=== PATIENT | male | born 1950 | race Caucasian/White ===

== ENCOUNTER 2017-02-19 17:43 | Observation (INO) | payer OTHER, MEDICARE ==
[~2017-02-19] VITALS: Ht 170.2 cm; Wt 85.3 kg
[~2017-02-19 17:43] MED LIST: ATENOLOL50 MG PO; CLINDAMYCIN HC150 MG PO; HYDROCHLOROTH12.5 MG PO; TENORMIN25 MG PO
[2017-02-19] MEDS ORDERED: LEVOTHYROXINE100 MCG PO (17:57)
--- NOTE | 2017-02-19 19:07 | NUR ---
I WAS CALLED IN FOR FULL TRAUMA FOR THIS PT. (MULT. DOG BITES). THANKFULLY TI WAS NOT SERIOUS COULD HAVE BEEN. I WAITED TILL NURSES AND DR RODRÍGUEZ DID WHAT THEY DO, THEN WENT IN AND TALKED A MINUTE WITH PT AND HIS SISTER, THEN PRAYED WITH THEM. TALKED A MINUTE MORE THEN TOLD THEM SINCE IT WAS NOT SERIOUS COULD BE AND IT LOOKED LIKE THINGS WOULD BE TAKEN CARE OF, I WOULD GET OUT OF EVERYONES WAY. PT IN GOOD ATTITUDE AND HIS SISTER ALSO.
--- NOTE | 2017-02-19 21:35 | NUR ---
02/19/172134 Liberty Mcginnis 2126-PATIENT ARRIVED TO PACU ON 10L MASK O2 SAT 99% PATIENT NONAROUSABLE ORAL AIRWAY IN PLACE. DRESSING TO RIGHT SIDE OF FACE, RIGHT AND LEFT HAND AND RIGHT LEG. CDI. SR.
--- NOTE | 2017-02-19 21:45 | EKG ---
[facility] [address] [facility] [place] [address] Signed Normal sinus rhythm Normal ECG When compared with ECG of 16-NOV-2015 13:00, Nonspecific T wave abnormality now evident in Lateral leads Confirmed by MARK GONG MD ([id number]) on 02/19/2017 9:45:35 PM Electronically Signed By: MARK GONG MD 02/19/17 2145 PATIENT NAME: DONJOSE ALBERTO DARSHAN Electrocardiogram DATE OF : 48 PHYSICIAN: MARK GONG MD REPORT #: [id number] REPORT IS CONFIDENTIAL AND NOT TO BE RELEASED WITHOUT AUTHORIZATION
--- NOTE | 2017-02-19 22:30 | NUR ---
PT ARRIVED TO FLOOR VIA STRETCHER. PT DROWSY BUT WAKES EASILY. PT WAKES CONFUSED AND FORGETS PLACE AND EVENT, BUT DOES RE-ORIENT EASILY. COOPERATIVE. DRESSING IN PLACE ON RIGHT FACE AND NECK, RIGHT ARM, RIGHT LOWER LEG AND LEFT HAND. RED SHADOWING ON RIGHT FACE DRESSING. LEFT FINGERS HAVE DARK RED BLOOD COVERING THEM. PT IS IN NO APPARENT DISTRESS AT THIS TIME, FALLS ASLEEP ON AND OFF WHILE STAFF IN THE ROOM. RR WNL AND UNLABORED, NO DIFFICULTY BREATHING AT THIS TIME. PT DRANK WATER, TOLERATED WELL. BED ALARM ON FOR SAFETY.
--- NOTE | 2017-02-20 01:15 | NUR ---
PT APPEARS TO BE SLEEPING. RR WNL AND UNLBORED.
--- NOTE | 2017-02-20 01:53 | NUR ---
PT WOKE WHEN VITALS TAKEN. SEEMS MORE ORIENTED AT THIS TIME, BUT STILL A LITTLE CONFUSED. HE RECALLED WHERE HE IS, BUT COULD NOT REMEMBER WHY, RN RE-ORIENTED PT. PT RATES PAIN AT 2/10, REPORTS PAIN IS FELT WORSE IN HIS RIGHT LEG, HE REFUSED PAIN MEDIATION AT THIS TIME, STATED "ITS OKAY RIGHT NOW." SHADOWING ON DRESSING TO RIGHT SIDE OF FACE REMAINS THE SAME. NO SWELLING IN NECK AND NO DIFFICULTLY BREATHING. ORIENTED PT TO CALL LIGHT. BED ALARM FOR SAFETY. ICE PACKS IN PLACE. PT HAS NO FURTHER NEEDS AT THIS TIME.
--- NOTE | 2017-02-20 05:40 | NUR ---
SCD'S WERE APPLIED AT 2245 TO THE LEFT LEG ONLY.
--- NOTE | 2017-02-20 05:42 | NUR ---
RE-POSITIONED PT IN BED. PT DENIES PAIN AT THIS TIME, RATES PAIN AT 0/10. STATES "I DONT HAVE ANY," IN REGARDS TO PAIN. ASSISTED PT WITH FINDING CHANNEL ON TV. GAVE APPLE JUICE, PT TOLERATING WELL. NO FURTHER NEEDS AT THIS TIME. CALL IGHT IN REACH.
--- NOTE | 2017-02-20 05:56 | NUR ---
PT SLEPT MAJORITY OF SHIFT. DRESSING TO RIGHT SIDE OF FACE HAS RED SHADOWING AND IT HAS BEEN UNCHANGED SINCE PT CAME TO THE FLOOR LAST NIGHT. PT HAS MULTIPLE PUNCTURE AND LACERATIONS ON FACE, NECK, HANDS, ARMS, AND LEGS. ALL WOUNDS ARE COVERED WITH GAUZE DRESSINGS. GOOD PEDAL PULSES. NO SIGNS OF DIFFICULTY BREATHING. PT COOPERATIVE. FORGETFUL DUE TO HX OF TBI. RE-ORIENTS EASILY. PLEASENT DEMEANOR.
--- NOTE | 2017-02-20 06:14 | OR ---
[facility] [address] [place], [place] [address] Signed DATE OF OPERATION: 02/19/2017 SURGEON: Erica Rodríguez MD PREOPERATIVE DIAGNOSIS: Dog bite right posterior mandible/right face, left hand, right wrist and right leg (mid to distal tibia). POSTOPERATIVE DIAGNOSIS: Dog bite right posterior mandible/right face, left hand, right wrist and right leg (mid to distal tibia). PROCEDURE: 1. Wound exploration, irrigation and sharp debridement. 2. Closure right mandibular/face wounds and right leg wounds. ESTIMATED BLOOD LOSS: None. INDICATIONS: Jose Alberto is a 66-year-old gentleman, who suffered a fairly significant traumatic brain injury back in the 1960s. Earlier today, for reasons that are not clear, he wanted to check on what he said are his rentals and he cut through a neighbor's backyard. Unfortunately, the neighbor's pit bull was present. Jose Alberto was bit over the right zygomatic arch and the posterior angle of the right mandible and then on his left hand, his right wrist and his mid to distal right leg. He was brought to our local emergency room for evaluation. He remained hemodynamically stable. His tetanus was updated and he was given a dose of Zosyn. I was asked to see him as a general surgeon on-call. It so happens that his sister is one of our OR nurses. I met with Alisha in the ER and we looked at his wounds. I explained to her, we would need to have him in the OR under general anesthesia, so we could thoroughly wash and scrub his wounds and assessed them more carefully and then decide on the best course of treatment. We gently can close animal bites to the head, face and neck but, we were less inclined to do so particularly on the hands, but also the legs depending on the wound, particularly puncture like wound. I explained to Jose Alberto there is risk including but not limited to bleeding, infection, scarring, change in contour of the skin and possible damage to nerves particularly in his left middle finger. He and his sister had expressed understanding and wished to proceed. PROCEDURE NOTE: Electronically Signed By: ERICA RODRÍGUEZ MD 02/20/17 0614 PATIENT NAME: JOSE ALBERTO OCHOA OPERATIVE REPORT DATE OF : 48 PHYSICIAN: ERICA RODRÍGUEZ MD REPORT #: [id number] REPORT IS CONFIDENTIAL AND NOT TO BE RELEASED WITHOUT AUTHORIZATION [facility] [address] [place] [id number] Signed Jose Alberto was taken down to our operating room and placed in the supine position under general endotracheal tube anesthesia. After this, we used our chlorhexidine scrub brushes and some saline and we thoroughly scrubbed down his right leg. We could see that the tendons are intact, a little bit of the muscle was torn, but the bone was not exposed and he had 2 bites in the back of that right leg, each about an inch or so in length, one was flat just a little bit. After this, we cleaned off his right wrist with some relatively small bites on his wrist and it does not look like any of the wrist joints were involved. We looked at his right hand and that was worse, particularly his middle finger. It was pretty deep near the tip as well as near the base of that finger. It was hard to see in the wounds even after we cleaned and debrided them, I think the tendons were intact based on opening and closing his hand and his fingers. We did not do a formal neurologic assessment obviously before or during the procedure. After that we washed off his right face and he had a fairly large slashing laceration to the posterior aspect of his mandible involved just a little bit of the muscle but otherwise was not. It did not appear any deeper than that and of course 2 of the teeth went in near the zygomatic arch. The more inferior puncture wound actually connects to the wound on the back of the mandible. Once that was completely scrubbed and cleaned, I actually scrubbed out of surgery and took a minute to call Dr. Mark Ahumada our orthopedic surgeon ammonia worker. I reviewed the hand wound and the leg wound with him in detail. We decided to address his left hand with some bacitracin and some gauze, so that he can be formally evaluated in the office not tomorrow, but the next day. On the right pretibial area, we decided to go ahead and close that after some sharp debridement and evacuation of all that hematoma. We used 2-0 nylon vertical mattress sutures to just gently reapproximate the edge of that wound. Since it was mostly a flap, we wanted to cover that muscle to keep it from desiccating. Then on the back of the leg, the more superior wound was triangular shaped and a little bit of a flap, and I just took 1 stitch to bring the middle of that wound together and the laceration just below that we left that open and it should heal fine, that was then wrapped with some dry Kerlix gauze and a 6-inch Alexys wrap. Similarly, the right wrist had just a couple of puncture wounds from the dog's teeth, so we left those open and we just wrapped that gently with Kerlix gauze and an Alexys wrap and after this, we took the entire field down. I went and scrubbed out and completely re-gowned and re-gloved and then we reprepped and draped over his right face and explored that wound once again. There was just a little bit of sharp debridement I had to do along the skin edges and underneath it. We washed it out thoroughly with irrigation and some dry gauze to help kind of abrade the area. After this, we reapproximated the 2 bite wounds over the zygomatic arch just loosely with several interrupted 5-0 subcuticular Monocryl sutures just to gently bring those skin edges together and after that, I brought the laceration over his mandible together with interrupted 3-0 subcuticular Monocryl sutures. After this, dry gauze and tape was applied. We then awakened Jose Alberto from his anesthesia. He was extubated in the OR and taken to recovery room in stable condition. Electronically Signed By: ERICA RODRÍGUEZ MD 02/20/17 0614 PATIENT NAME: JOSE ALBERTO OCHOA OPERATIVE REPORT DATE OF : 48 PHYSICIAN: ERICA RODRÍGUEZ MD REPORT #: [id number] REPORT IS CONFIDENTIAL AND NOT TO BE RELEASED WITHOUT AUTHORIZATION [address] [address] Signed MD DEWAYNE Allan/FILOMENAL /[id number] cc: MD Erica Weldon MD Bradley Adams, MD Electronically Signed By: ERICA RODRÍGUEZ MD 02/20/17 0614 PATIENT NAME: JOSE ALBERTO OCHOA OPERATIVE REPORT DATE OF : 48 PHYSICIAN: ERICA RODRÍGUEZ MD REPORT #: [id number] REPORT IS CONFIDENTIAL AND NOT TO BE RELEASED WITHOUT AUTHORIZATION
--- NOTE | 2017-02-20 06:50 | NUR ---
dc'd elana. pt tolerated well. continues to refuse pain medications. dr ovalle rounded on pt this morning.
--- NOTE | 2017-02-20 07:25 | NUR ---
pt awake laying in bed. pts diet was advanced- breakfast tray ordered.
--- NOTE | 2017-02-20 07:30 | NUR ---
REPORT RECEIVED FROM HUMA BENJAMIN. PT AWAKE AND TALKATIVE. HX OF SHORT TERM MEMORY LOSS, COULD NOT TELL US WHAT HAPPENED TO HIM BUT KNOWS HE IS IN THE HOSPITAL. DENIES PAIN, A LITTLE BIT OF DISCOMFORT. CASSIDY WILL ORDER BREAKFAST.
--- NOTE | 2017-02-20 08:04 | NUR ---
PT EATING BREAKFAST. ADVISED TO SLOW DOWN A BIT HE WAS TAKING HUGE BITES AND HAD SURGERY ON FACE AND NECK. DENIES PAIN. STATES HIS SISTER WILL COME TO SEE HIM TODAY SHE IS AN RN HERE. DOES NOT FEEL URGE TO URINATE YET.
--- NOTE | 2017-02-20 08:37 | CONS ---
[facility] [address] [place], [place] [address] Signed DATE OF CONSULTATION: 02/19/2017 CHIEF COMPLAINT: Dog bite. HISTORY OF PRESENT ILLNESS: Jose Alberto is a 66-year-old gentleman with a long history of traumatic brain injury. He states he was going out today to check on some of his rentals. When he went neighbor's yard, the pit-bull apparently jumped him, he ended up in the kitchen, and the squad was called. He had quite an injury to the posterior aspect of his right mandible, also over the right pretibial area, and then some bites to his left hand. He was brought to our local emergency room for evaluation. He has done well here in the emergency room without any bleeding or hemodynamic instability. In the meantime, he has been given Zosyn and updated on his tetanus shot. I have been asked to see him as a general surgeon on-call. PAST MEDICAL HISTORY: Hypertension, osteoarthritis, angina, apparently coma in the 1960s from a traumatic brain injury, and also history of acute kidney injury. PAST SURGICAL HISTORY: He has a rebuilt mandible and clavicle, and 3/4 right nephrectomy. SOCIAL HISTORY: He does not smoke or drink. Apparently likes little marijuana. Dr. Roa is his primary care provider. Theresa Fitzgerald is his sister at [phone]. He prefers the [facility]. FAMILY HISTORY: Not reviewed today. REVIEW OF SYSTEMS: He had 10 systems reviewed and really nothing new to add. ALLERGIES: None. MEDICATIONS: Atenolol 25 mg p.o. at bedtime and levothyroxine 100 mcg p.o. daily. PHYSICAL EXAMINATION: VITAL SIGNS: His blood pressure is 120/72, heart rate is 67, respiratory rate is 16, temperature is 97.0. He is 98% on room air. He is 5 feet 7 inches, 72 kg. Electronically Signed By: ERICA RODRÍGUEZ MD 02/20/17 0614 Electronically Signed By: ERICA RODRÍGUEZ MD 02/20/17 1113 PATIENT NAME: JOSE ALBERTO OCHOA CONSULTATION DATE OF : 48 PHYSICIAN: ERICA RODRÍGUEZ MD REPORT #: [id number] REPORT IS CONFIDENTIAL AND NOT TO BE RELEASED WITHOUT AUTHORIZATION [facility] [address] [place], [place] [address] Signed GENERAL: He is alert, awake, and interactive. It is clear he has had a traumatic brain injury, although he is cooperative. LUNGS: Generally clear to auscultation bilaterally. HEART: Regular rate and rhythm. ABDOMEN: Benign. SKIN: I can see the gaping wound through his chaves on the posterior aspect of his right mandible. He has some bite huffman on his left hand and it is partially wrapped, and then he has an open 5 cm wound on his right pretibial area that is filled with hematoma. His sister, Theresa, is in the room as well. LABORATORY DATA: His white blood cell count is 7.5, hemoglobin 13, neutrophils 49. EKG is unremarkable. He had a chest x-ray done, it is pending. ASSESSMENT AND PLAN: Jose Alberto is a 66-year-old gentleman who has several serous dog bites as described above, certainly in the right posterior mandible area and then left hand and his right pretibial area. We are going to take him down to OR and we are going to put him asleep, so we can clean these areas, evaluate him thoroughly, and see if we can help close those areas here. We will leave the wounds on the hand open, we may partially close the leg, we should be able to close the injury on his neck. Of course, he is at high risk for infection including Pasteurella. Consequently, he has been given Zosyn. I have reviewed this with Jose Alberto and his sister. They have expressed understanding and agreed to the above plan. Erica Rodríguez MD [facility]/FILOMENAL /[id number] cc: Erica Rodríguez MD Electronically Signed By: ERICA RODRÍGUEZ MD 02/20/17 0614 Electronically Signed By: ERICA RODRÍGUEZ MD 02/20/17 1113 PATIENT NAME: JOSE ALBERTO OCHOA CONSULTATION DATE OF : 48 PHYSICIAN: ERICA RODRÍGUEZ MD REPORT #: [id number] REPORT IS CONFIDENTIAL AND NOT TO BE RELEASED WITHOUT AUTHORIZATION [facility] [address] [place] [address] [place], [place] [address] Signed W López Roa MD Electronically Signed By: ERICA RODRÍGUEZ MD 02/20/17 0614 Electronically Signed By: ERICA RODRÍGUEZ MD 02/20/17 1113 PATIENT NAME: DONJOSE ALBERTO DARSHAN CONSULTATION DATE OF : 48 PHYSICIAN: ERICA RODRÍGUEZ MD REPORT #: [id number] REPORT IS CONFIDENTIAL AND NOT TO BE RELEASED WITHOUT AUTHORIZATION
--- NOTE | 2017-02-20 10:12 | NUR ---
PT SITTING UP IN BED WATCHING TV. DENIES CONCERNS. INTERIM CONTROLLER DOING VITALS.
--- NOTE | 2017-02-20 10:16 | NUR ---
pts vitals taken at this time. assisted Brittney-RN in getting pt up to the chair. Bedbath given and AM care done.
--- NOTE | 2017-02-20 10:40 | NUR ---
ASSISTED FINAL INSPECTOR AND TESTER WITH TRANSFERING PT TO CHAIR. AMBULATED WITH FWW AND ASSIST IN TO RESTROOM. URINATED WO DIFFICULTY. FINAL INSPECTOR AND TESTER GAVE BED BATH. REORIENTED PT REGARDING WOUNDS AND FACT HE CAN NOT GET OUT OF BED OR CHAIR WITHOUT CALLING. CALL LIGHT IN REACH AND CURTAIN OPEN. TRIED TO CLEAN BLOOD FROM EXPOSED SKIN. PT DENIES PAIN.
[2017-02-20] MEDS ORDERED: TYLENOL325 MG PO (11:40)
[2017-02-20] MEDS ORDERED: NORCO 5-325 TA1 EACH PO (11:40)
[2017-02-20] MEDS ORDERED: AUGMENTIN 875-1 EACH PO (11:41)
--- NOTE | 2017-02-20 12:26 | NUR ---
DISCHARGE INSTRUCTIONS GIVEN TO SISTER MONA PT FORGETS QUICKLY. INSTRUCTIONS FOR MEDICATIONS AND DRESSINGS AND FOLLOWUP APPT. ADDRESSED. PHARM. WANDER IN TO EDUCATE ON MEDICATIONS. SISTER IS RN IN THIS OR. HAS VERY FEW QUESTIONS. SISTER WENT HOME TO GET PT CLOTHING. PT REMINDED TO STAY IN CHAIR AND CALL IF HE NEEDS SOMETHING.
--- NOTE | 2017-02-20 12:42 | NUR ---
pt is sitting up in the chair; waiting to be discharged. IV taken out by Mary.
--- NOTE | 2017-02-20 13:27 | NUR ---
PT APPEARS TO BE SLEEPING IN CHAIR WITH HAND PROPPED ON PILLOW. AWAITING THE RETURN OF HIS SISTER TO TAKE HIM HOME.
--- NOTE | 2017-02-23 16:42 | DS ---
[facility] [address] [place], [place] [address] Signed ADMISSION DATE: 02/19/2017 DISCHARGE DATE: 02/21/2017 FINAL DIAGNOSES: 1. Multiple dog bites including right face/right mandible, right wrist, left hand, right leg. 2. Remote history of traumatic brain injury. 3. History of acute renal failure. PROCEDURES: 1. Wound exploration with sharp debridement and closure of the right face wounds and right leg wounds. 2. Multiple x-rays. HISTORY OF PRESENT ILLNESS: Jose Alberto is a 66-year-old gentleman, who in the 1960s had a traumatic brain injury. He had reconstruction of his mandible as well. Unfortunately, he decided to check on some rentals and he decided to go through his neighbor's backyard. Apparently, there is a fence. The neighbor's pit bull proceeded to bite him in multiple locations as listed above. Apparently, the neighbor girl came and was able to get the dog off Jose Alberto and EMS was called. He was then brought to our local emergency room. HOSPITAL COURSE: Jose Alberto was seen in the emergency room by Dr. Kay and myself. He was given a dose of Zosyn IV as well as update on his tetanus shot. I took Jose Alberto to the operating room last night under general anesthesia and we used our chlorhexidine scrub brushes to aggressively clean all his wounds. The puncture wounds on his right wrist we left open and we simply wrapped that with some Kerlix gauze. The left hand was somewhat extensive, and therefore, I had called our orthopedic surgeon over the telephone. We decided to leave those wounds open with bacitracin and then wrap that hand extensively with gauze and Alexys wrap. On the leg, he had a flap injury anteriorly on the right tibia with [id number] damage to the muscle underneath. The tendons looked intact. We went ahead and cleaned that up and then just brought the skin flap back over it with several interrupted vertical nylon sutures. On the back of that calf overlying the Achilles tendon, more superior incision was also triangular and flap shaped and I brought that back with one simple nylon suture. The more inferior incision over that Achilles was left open and then dressed with Kerlix gauze and an Alexys wrap. We then moved to his face and we cleaned that extensively both inside and out. The 2 bite wounds over his right cheek were closed with interrupted 5-0 subcuticular Monocryl sutures. They were loosely approximated in that way. He has a large laceration over the posterior aspect of his right mandible and that was also a flap-type avulsion, that we cleaned extensively and Electronically Signed By: ERICA RODRÍGUEZ MD 02/23/17 1642 PATIENT NAME: JOSE ALBERTO OCHOA DISCHARGE SUMMARY DATE OF : 48 PHYSICIAN: ERICA RODRÍGUEZ MD REPORT #: [id number] REPORT IS CONFIDENTIAL AND NOT TO BE RELEASED WITHOUT AUTHORIZATION [facility] [address] [place] [address] Signed then we just brought the dermis back together loosely with interrupted 3-0 subcuticular Monocryl sutures. Just dry gauze and tape was applied over that. It was already late at night, so we kept him overnight. This morning, he is doing well. We went ahead and took some x-rays of his both hands and wrists. There were no fractures or malalignments, only soft tissue damage. Dr. Ahumada had come in to see him here in the hospital and talked to Jose Alberto and his sister. Dr. Ahumada wants to see him in 2 days at the office for formal evaluation of those wounds. In the meantime, he wants him on Augmentin 750 mg p.o. b.i.d. Amazingly, Jose Alberto does not complain of pain and has not asked for pain medication. He has had his breakfast and otherwise is doing well. He is allowed to be weightbearing on his leg given the fact that the fibula has just a little bit of a chip or an avulsion type fracture from his dog bite. Consequently, we are going to make arrangements to go ahead and let Jose Alberto go home later today. DISCHARGE PLANS AND MEDICATIONS: Jose Alberto will be discharged to home with a prescription for Hayden 5/325 mg 1-2 tablets p.o. every 4-6 hours p.r.n. pain. We will dispense just 25 tablets with no refills. He is welcome to use some Tylenol as needed for pain. He can purchase that [id number]. He does not use NSAIDs because of his previous renal history. He should not use any aspirin for about the next 8 weeks. He can certainly resume his chronic medications, which includes his atenolol and his levothyroxine. I also wrote for Augmentin 875 mg p.o. b.i.d. for 1 week. He is welcome to remove all his dressings tomorrow except the left hand. He can cover the left hand with a plastic bag and a Band-Aid and he can shower with soap and water and shampoo. He can then re-dress the left leg and right wrist with just 4-inch Kerlix gauze roll and Alexys bandage as needed. He can leave his right face wound open to air and only re-dress it lightly with gauze and tape if it has some drainage. He is welcome to take diet as tolerated. He can perform his activities of daily living including walking up and down stairs as needed. He should not do any heavy pushing, pulling, or lifting. He is not to do any swimming or get into the hot tub at our local athletic club. He is not to use his left hand any more than needed. I reviewed this with Jose Alberto and his nurse. They have expressed understanding and agreed with above plan. I will see Jose Alberto back in my office in a week or so for followup. Erica Rodríguez MD Electronically Signed By: ERICA RODRÍGUEZ MD 02/23/17 1642 PATIENT NAME: JOSE ALBERTO OCHOA DISCHARGE SUMMARY DATE OF : 48 PHYSICIAN: ERICA RODRÍGUEZ MD REPORT #: [id number] REPORT IS CONFIDENTIAL AND NOT TO BE RELEASED WITHOUT AUTHORIZATION [facility] [address] [place] [address] [place] [address] Signed ALB/MODL /[id number] cc: MD Arias Weldon MD Electronically Signed By: ERICA RODRÍGUEZ MD 02/23/17 1642 PATIENT NAME: JOSE ALBERTO OCHOA DISCHARGE SUMMARY DATE OF : 48 PHYSICIAN: ERICA RODRÍGUEZ MD REPORT #: [id number] REPORT IS CONFIDENTIAL AND NOT TO BE RELEASED WITHOUT AUTHORIZATION
== END 2017-02-20 13:47 | disposition home or self-care (01) ==
LOC: ED 17:43 → MS 17:44
PROVIDERS: ADMIT Colon & Rectal Surgery
PROC: 0HQKXZZ Repair Right Lower Leg Skin, External Approach (ICD-10-PCS; 2017-02-19)
PROC: 0HQ4XZZ Repair Neck Skin, External Approach (ICD-10-PCS; principal; 2017-02-19 19:50)
DX: S01.81XA Laceration without foreign body of other part of head, initial encounter (principal); S91.011A Laceration without foreign body, right ankle, initial encounter; S81.811A Laceration without foreign body, right lower leg, initial encounter; S61.412A Laceration without foreign body of left hand, initial encounter; S61.511A Laceration without foreign body of right wrist, initial encounter; W54.0XXA Bitten by dog, initial encounter; Y92.007 Garden or yard of unspecified non-institutional (private) residence as the place of occurrence of the external cause; E03.9 Hypothyroidism, unspecified; I25.10 Atherosclerotic heart disease of native coronary artery without angina pectoris; I12.9 Hypertensive chronic kidney disease with stage 1 through stage 4 chronic kidney disease, or unspecified chronic kidney disease; N18.9 Chronic kidney disease, unspecified; M19.90 Unspecified osteoarthritis, unspecified site; Z87.820 Personal history of traumatic brain injury; Z90.5 Acquired absence of kidney; Z79.899 Other long term (current) drug therapy
CPT/HCPCS: 00300; 36415; 71010; 73110; 73590; 80053; 81001; 85025; 85610; 85730; 86850; 86900; 86901; 86920; 90471; 90715; 93005; 93010; 96365; 96375; 99285; G0378; G0390; J0330; J0461; J1100; J1170; J1885; J2250; J2405; J2543; J2704; J2710; J2765; J3010

== ENCOUNTER 2017-03-11 14:03 | Emergency (ER) | payer MEDICARE, OTHER ==
[~2017-03-11] VITALS: Ht 170.2 cm; Wt 74.4 kg
[~2017-03-11 14:03] MED LIST changes: +AUGMENTIN 875-1 EACH PO; +LEVOTHYROXINE100 MCG PO; +NORCO 5-325 TA1 EACH PO; +TYLENOL325 MG PO
[2017-03-11] MEDS ORDERED: AMLODIPINE BESY10 MG (14:36)
--- NOTE | 2017-03-13 07:20 | EKG ---
[facility] [address] [place] [address] Signed Normal sinus rhythm Normal ECG When compared with ECG of 19-FEB-2017 18:12, No significant change was found Confirmed by ZHANE ALFORD MD ([id number]) on 03/13/2017 7:20:15 AM Electronically Signed By: ZHANE ALFORD MD 03/13/17 0720 PATIENT NAME: JOSE ALBERTO OCHOA DARSHAN Electrocardiogram DATE OF : 48 PHYSICIAN: ZHANE ALFORD MD REPORT #: [id number] REPORT IS CONFIDENTIAL AND NOT TO BE RELEASED WITHOUT AUTHORIZATION
== END 2017-03-11 16:45 | disposition home or self-care (01) ==
LOC: ED 14:03
DX: R55 Syncope and collapse (principal); I10 Essential (primary) hypertension; Z90.5 Acquired absence of kidney; Z79.899 Other long term (current) drug therapy
CPT/HCPCS: 80053; 84484; 85025; 93005; 93010; 99284; J7030

== ENCOUNTER 2017-03-19 10:34 | Emergency (ER) | payer MEDICARE, OTHER ==
[~2017-03-19] VITALS: Ht 170.2 cm; Wt 72.6 kg
[~2017-03-19 10:34] MED LIST changes: +AMLODIPINE BESY10 MG
--- NOTE | 2017-03-20 15:28 | EKG ---
[facility] [address] [place] [address] Signed Normal sinus rhythm Nonspecific intraventricular conduction delay Nonspecific T wave abnormality Abnormal ECG When compared with ECG of 11-MAR-2017 14:23, No significant change was found Confirmed by MARK GONG MD ([id number]) on 03/20/2017 3:28:30 PM Electronically Signed By: MARK GONG MD 03/20/17 1528 PATIENT NAME: DONJOSE ALBERTO DARSHAN Electrocardiogram DATE OF : 48 PHYSICIAN: MARK GONG MD REPORT #: [id number] REPORT IS CONFIDENTIAL AND NOT TO BE RELEASED WITHOUT AUTHORIZATION
== END 2017-03-19 12:06 | disposition home or self-care (01) ==
LOC: ED 10:34
DX: R55 Syncope and collapse (principal); I10 Essential (primary) hypertension; Z79.899 Other long term (current) drug therapy
CPT/HCPCS: 80048; 84484; 85025; 93005; 93010; 96360; 99283; J7030

== ENCOUNTER 2017-05-23 10:50 | Day surgery (SDC) | payer MEDICARE, OTHER ==
[~2017-05-23] VITALS: Ht 170.2 cm; Wt 75.3 kg
--- NOTE | 2017-05-23 16:47 | NUR ---
05/23/17 1646 Liberty Mcginnis 1642-PATIENT ARRIVED TO PACU ON 4LNC WEANED TO RA 02 SAT 99% NONAROUSABLE. LAYING LEFT LATERAL. ABDOMEN SOFT. 1646-PATIENT AROUSES TO VERBAL STIMULI DENIES PAIN OR NAUSEA.
--- NOTE | 2017-05-25 17:13 | OR ---
[facility] [address] [place], [place] [address] Signed DATE OF OPERATION: 05/23/2017 SURGEON: Jun Ambriz MD PREOPERATIVE DIAGNOSIS: Heme-positive stools. POSTOPERATIVE DIAGNOSES: 1. Hiatal hernia without esophagitis, mild gastritis. 2. Normal colon to cecum. PROCEDURE: 1. Esophagogastroduodenoscopy with biopsy. 2. Total colonoscopy to cecum. ANESTHESIA: Intravenous sedation, propofol infusion; Aileen Landis CRNA. INDICATION: This 66-year-old white man has suffered traumatic brain injury many, many years ago, and has diminished mental capacity, but is highly functional in most respects. He is the brother of Theresa Hansen RN, operating room nurse. He is a patient also of Dr. Roa and has been identified as having heme-positive stool on routine testing. He has had no blood per rectum or hematemesis that he is aware of. He does have family history of colon cancer. On that basis, he is admitted at this time to undergo upper endoscopy and colonoscopy to better characterize the possibility of a lesion that would account for heme-positive stools. He understands as does his sister the risks of bleeding, infection, and perforation and wished to proceed. FINDINGS: On upper endoscopy, he had a hiatal hernia. No obvious esophagitis. The stomach showed mild gastritis, but no ulceration or neoplasm. On colonoscopy, the prep was quite good. There was no lesion to account for heme-positive stools. PROCEDURE: The patient was brought to the endoscopy suite and placed in lateral decubitus position, given topical Hurricaine spray hypopharyngeal anesthesia. He was given intravenous sedation to the point of slurred speech and nystagmus. Full cardiopulmonary monitoring Electronically Signed By: JUN AMBRIZ MD 05/25/17 1713 PATIENT NAME: JOSE ALBERTO OCHOA OPERATIVE REPORT DATE OF : 48 REPORT #: [id number] PHYSICIAN: JUN AMBRIZ MD PCP: Julita ROA MD REPORT IS CONFIDENTIAL AND NOT TO BE RELEASED WITHOUT AUTHORIZATION [facility] [address] [place], [place] [address] Signed by the tentering machine off bearer. An Olympus video upper endoscope was passed in the hypopharynx. Ultimately, the scope was passed into the esophagus. The passage there was not as easy as usual. The vocal cords appeared normal. The scope was then advanced throughout the esophagus, stomach, and duodenum. The duodenum was normal as was the pylorus. There was antral gastritis, but no sign of erosion or ulcer. The retroflexed view showed a hiatal hernia. There was mild proximal gastritis. Biopsies were taken of the antrum and more proximal stomach and CLOtest undertaken as well. The scope was withdrawn to the distal esophagus, which was essentially normal. The midesophagus also normal. Scope was removed. The patient was rotated and plans made for colonoscopy. Digital rectal examination was performed and was normal. An Olympus video colonoscope was passed in the rectum and manipulated throughout the colon ultimately intubating the cecum itself. The ileocecal valve and appendiceal orifice were normal. Scope was withdrawn from that point. Examination throughout showed no sign of polyps, diverticular formation, colitis, or cancer. Retroflexed view was normal as well. The scope was removed and the patient was taken to recovery room in good condition. CONCLUDING DIAGNOSIS: 1. Mild gastritis unlikely to account for heme-positive stool. 2. Normal colon. PLAN: He will return to the ongoing care of Dr. Roa. We would recommend generally high-fiber diet. As he is asymptomatic regarding his mild gastritis, no specific therapy at this time. Jun Ambriz MD /FILOMENAL /[id number] cc: Julita Roa MD Copies: Julita ROA MD Electronically Signed By: JUN AMBRIZ MD 05/25/17 1713 PATIENT NAME: JOSE ALBERTO OCHOA OPERATIVE REPORT DATE OF : 48 REPORT #: [id number] PHYSICIAN: JUN AMBRIZ MD PCP: Julita ROA MD REPORT IS CONFIDENTIAL AND NOT TO BE RELEASED WITHOUT AUTHORIZATION [facility] [address] [facility] [place] [address] Signed ~ Electronically Signed By: JUN AMBRIZ MD 05/25/17 1713 PATIENT NAME: JOSE ALBERTO OCHOA OPERATIVE REPORT DATE OF : 48 REPORT #: [id number] PHYSICIAN: JUN AMBRIZ MD PCP: Julita ROA MD REPORT IS CONFIDENTIAL AND NOT TO BE RELEASED WITHOUT AUTHORIZATION
== END 2017-05-23 17:22 | disposition home or self-care (01) ==
LOC: OPS 10:50 → DS 12:00 → OPS 12:00
PROVIDERS: Surgery
PROC: 0DB78ZX Excision of Stomach, Pylorus, Via Natural or Artificial Opening Endoscopic, Diagnostic (ICD-10-PCS; principal; 2017-05-23 12:00)
PROC: 0DJD8ZZ Inspection of Lower Intestinal Tract, Via Natural or Artificial Opening Endoscopic (ICD-10-PCS; 2017-05-23 12:00)
DX: K29.50 Unspecified chronic gastritis without bleeding (principal); K44.9 Diaphragmatic hernia without obstruction or gangrene; R19.5 Other fecal abnormalities; I10 Essential (primary) hypertension; F12.90 Cannabis use, unspecified, uncomplicated; Z98.890 Other specified postprocedural states; Z87.820 Personal history of traumatic brain injury; Z79.899 Other long term (current) drug therapy; Z80.0 Family history of malignant neoplasm of digestive organs
CPT/HCPCS: 88305; J2704; J7120

== ENCOUNTER 2017-09-30 19:42 | Emergency (ER) | payer MEDICARE, OTHER ==
[~2017-09-30] VITALS: Ht 170.2 cm; Wt 75.3 kg
[2017-09-30] MEDS ORDERED: K-TAB ER20 MEQ PO (19:58)
--- NOTE | 2017-09-30 22:12 | EKG ---
[facility] [address] [place] [address] Signed Normal sinus rhythm Possible Left atrial enlargement Borderline ECG When compared with ECG of 30-SEP-2017 19:45, (Unconfirmed) No significant change was found Confirmed by MARK GONG MD ([id number]) on 09/30/2017 10:12:22 PM Electronically Signed By: MARK GONG MD 09/30/17 2212 PATIENT NAME: JOSE ALBERTO OCHOA DARSHAN Electrocardiogram DATE OF : 48 PHYSICIAN: MARK GONG MD REPORT #: [id number] REPORT IS CONFIDENTIAL AND NOT TO BE RELEASED WITHOUT AUTHORIZATION
== END 2017-09-30 21:35 | disposition home or self-care (01) ==
LOC: ED 19:42
DX: R55 Syncope and collapse (principal); F03.90 Unspecified dementia, unspecified severity, without behavioral disturbance, psychotic disturbance, mood disturbance, and anxiety; I10 Essential (primary) hypertension; F17.200 Nicotine dependence, unspecified, uncomplicated
CPT/HCPCS: 71045; 80053; 81001; 84484; 85025; 93005; 93010; 96360; 99284; J7030

== ENCOUNTER 2023-01-08 17:17 | Emergency (ER) | payer MEDICARE, OTHER ==
[~2023-01-08] VITALS: Ht 170.2 cm; Wt 63.5 kg
[~2023-01-08 17:17] MED LIST changes: +K-TAB ER20 MEQ PO
[2023-01-08 17:56] LABS: BASOPHILS 0.7 % (0-2); EOSINOPHILS 1.9 % (0-6); HEMATOCRIT 44.4 % (35.0-50.0); HEMOGLOBIN 15.1 g/dL (12.0-18.0); MCH 29.8 (27-36); MCHC 33.9 g/dl (30-36); MCV 87.9 fl (81-99); MONOCYTES 8.5 % (0-12); NEUTROPHILS 57.9 % (39-80); PLATELET COUNT 248 K/uL (140-440); RBC 5.05 M/ul (4.3-5.7); RDW 13.2 (10.5-15.0)
[2023-01-08 18:04] LABS: ALBUMIN 3.9 g/dL (3.4-5.0); ALBUMIN/GLOBULIN RATIO 1.11 (1.1-2.4); ANION GAP 9.9 (7-21); BILIRUBIN, TOTAL 0.6 ng/dL (0.2-1.0); BUN/CREATININE RATIO 11.57 (6.0-28.6); CALCIUM 9.1 mg/dL (8.5-10.1); CREATININE, SERUM 1.21 mg/dL (0.70-1.30); POTASSIUM 3.9 mmol/L (3.5-5.1); PROTEIN, TOTAL 7.4 g/dL (6.4-8.2)
[2023-01-08 19:49] LABS: BILIRUBIN, URINE NEGATIVE (negative); BLOOD/HGB, URINE NEGATIVE (Negative); KETONE, URINE NEGATIVE (Negative); LEUK ESTERASE, URINE NEGATIVE (negative); NITRITE, URINE NEGATIVE (negative)
[2023-01-08 19:55] LABS: BACTERIA, URINE NONE SEEN /hpf (negative); CASTS, URINE NONE SEEN \\lpf; COLLECTION TYPE, URINE CLEAN CATCH; CRYSTALS, URINE NONE SEEN (0-1+); EPITHELIAL CELLS, URINE 0 /lpf (0-1+); RED BLOOD CELLS, URINE 0-1 /hpf (0-5); REFLEX CULTURE, URINE No (No); WHITE BLOOD CELLS, URINE 0-1 /HPF (0-5)
[2023-01-08 20:03] LABS: AMPHETAMINES, URINE NEGATIVE (NEGATIVE); BARBITURATES, URINE NEGATIVE (NEGATIVE); BENZODIAZEPINE, URINE NEGATIVE (NEGATIVE); BUPRENORPHINE, URINE NEGATIVE (NEGATIVE); CANNABINOID, URINE NEGATIVE (NEGATIVE); COCAINE, URINE NEGATIVE (NEGATIVE); ECSTASY, URINE NEGATIVE (NEGATIVE); FENTANYL, URINE NEGATIVE (NEGATIVE); METHADONE, URINE NEGATIVE (NEGATIVE); OPIATES, URINE NEGATIVE (NEGATIVE); OXYCODONE, URINE NEGATIVE (NEGATIVE); PHENCYCLIDINE, URINE NEGATIVE (NEGATIVE)
[2023-01-08] MEDS ORDERED: TRAMADOL HCL50 MG PO (22:03)
[2023-01-08 22:43] VITALS: BP 00/00
== END 2023-01-08 22:43 | disposition home or self-care (01) ==
LOC: ED 17:17
PROVIDERS: Emergency Medicine
DX: S70.12XA Contusion of left thigh, initial encounter (principal); S30.1XXA Contusion of abdominal wall, initial encounter; I10 Essential (primary) hypertension; J98.4 Other disorders of lung; F17.200 Nicotine dependence, unspecified, uncomplicated; V23.49XA Other motorcycle driver injured in collision with car, pick-up truck or van in traffic accident, initial encounter; Z79.899 Other long term (current) drug therapy
CPT/HCPCS: 36415; 70450; 71260; 72125; 73552; 73560; 74177; 80053; 80307; 81001; 85025; 99284-25; A9270; Q9967